=== PATIENT | female | born 1995 | race American Indian/Alaskan Native ===

== ENCOUNTER 2019-10-26 10:44 | Emergency (ER) | payer SELFPAY ==
[2019-10-26 11:02] VITALS: BP 144/86
--- NOTE | 2019-10-26 11:49 | Emergency Department Report ---
ED ENT HPI - General Chief complaint: Dental/Oral Stated complaint: TOOTH PAIN Time Seen by Provider: 10/26/19 11:29 Source: patient Mode of arrival: Ambulatory Limitations: No Limitations - History of Present Illness Initial comments: 24-year-old obese female sent emerge department complaining of atraumatic dental pain to the left side which is worse with chewing and eating and palpation. No fevers chills or sweats no odynophagia or dysphasia no hemoptysis hematemesis no hematochezia. MD complaint: tooth pain Location: tooth # Severity: mild, moderate Quality: dull Consistency: constant Improves with: none Worsens with: eating, movement Associated Symptoms: toothache. denies: sore throat, tinnitus, discharge from ear, rhinorrhea - Related Data Previous Rx's Medication Instructions Recorded Last Taken Type Amoxicillin [Amoxicillin TAB] 875 mg PO BID #20 tablet 10/26/19 Unknown Rx Chlorhexidine Mouthwash [Peridex] 15 ml MM BID #473 bottle 10/26/19 Unknown Rx Lidocaine Viscous 2% 5 ml MM Q3H PRN #120 udc 10/26/19 Unknown Rx Allergies Allergy/AdvReac Type Severity Reaction Status Date / Time shellfish derived Allergy Hives Verified 10/26/19 11:01 ED Dental HPI - General Chief complaint: Dental/Oral Stated complaint: TOOTH PAIN Time Seen by Provider: 10/26/19 11:29 Source: patient Mode of arrival: Ambulatory Limitations: No Limitations - Related Data Previous Rx's Medication Instructions Recorded Last Taken Type Amoxicillin [Amoxicillin TAB] 875 mg PO BID #20 tablet 10/26/19 Unknown Rx Chlorhexidine Mouthwash [Peridex] 15 ml MM BID #473 bottle 10/26/19 Unknown Rx Lidocaine Viscous 2% 5 ml MM Q3H PRN #120 udc 10/26/19 Unknown Rx Allergies Allergy/AdvReac Type Severity Reaction Status Date / Time shellfish derived Allergy Hives Verified 10/26/19 11:01 ED Review of Systems ROS: Stated complaint: TOOTH PAIN Other details as noted in HPI Comment: All other systems reviewed and negative ED Past Medical Hx - Past Medical History Previous Medical History?: No - Surgical History Past Surgical History?: No - Medications Home Medications: Home Medications Medication Instructions Recorded Confirmed Last Taken Type Amoxicillin [Amoxicillin TAB] 875 mg PO BID #20 tablet 10/26/19 Unknown Rx Chlorhexidine Mouthwash [Peridex] 15 ml MM BID #473 bottle 10/26/19 Unknown Rx Lidocaine Viscous 2% 5 ml MM Q3H PRN #120 udc 10/26/19 Unknown Rx ED Physical Exam - General Limitations: No Limitations General appearance: alert, in no apparent distress - Head Head exam: Present: atraumatic, normocephalic - Eye Eye exam: Present: normal appearance, PERRL, EOMI Pupils: Present: normal accommodation - ENT ENT exam: Present: normal exam, normal orophraynx, mucous membranes moist, TM's normal bilaterally, other (There is some tenderness to the left lower molar no adjacent erythema no exudate no fractured dentition) - Neck Neck exam: Present: normal inspection, full ROM - Respiratory Respiratory exam: Present: normal lung sounds bilaterally. Absent: respiratory distress - Cardiovascular Cardiovascular Exam: Present: regular rate, normal rhythm. Absent: systolic murmur, diastolic murmur, rubs, gallop - Extremities Exam Extremities exam: Present: normal inspection - Back Exam Back exam: Present: normal inspection - Neurological Exam Neurological exam: Present: alert, oriented X3 - Psychiatric Psychiatric exam: Present: normal affect, normal mood - Skin Skin exam: Present: warm, dry, intact, normal color. Absent: rash ED Course Vital Signs 10/26/19 11:01 Temperature 99.6 F Pulse Rate 98 H Respiratory 16 Rate Blood Pressure 144/86 [Right] O2 Sat by Pulse 97 Oximetry ED Medical Decision Making - Medical Decision Making 24-year-old female with atraumatic tenderness to the left lower dentition no evidence of any abscesses present at this time. No fracture to the dentition noted although there are caries noted Critical care attestation.: If time is entered above; I have spent that time in minutes in the direct care of this critically ill patient, excluding procedure time. ED Disposition Clinical Impression: Dentalgia Disposition: Z-07 MED SCREENING EXAM-LEFT Is pt being admited?: No Does the pt Need Aspirin: No Condition: Stable Instructions: Toothache (ED), Dental Caries (ED) Prescriptions: Amoxicillin [Amoxicillin TAB] 875 mg PO BID #20 tablet Lidocaine Viscous 2% 5 ml MM Q3H PRN #120 udc PRN Reason: Pain, Moderate (4-6) Chlorhexidine Mouthwash [Peridex] 15 ml MM BID #473 bottle Referrals: [facility] [Outside] - 3-5 Days
== END 2019-10-26 12:01 | disposition left against medical advice (07) ==
LOC: ED 10:44
DX: K08.89 Other specified disorders of teeth and supporting structures (principal); Z79.2 Long term (current) use of antibiotics; Z79.899 Other long term (current) drug therapy; Z91.013 Allergy to seafood
CPT/HCPCS: 99281

== ENCOUNTER 2021-12-26 11:30 | Emergency (ER) | payer SELFPAY ==
[2021-12-26] MEDS ORDERED: MORPHINE 4 MG/1 ML INJ IV ONE (11:41)
[2021-12-26] MEDS ORDERED: ONDANSETRON 4 MG/2 ML INJ IV ONE (11:41)
[2021-12-26] MEDS ORDERED: SODIUM CHLORIDE 0.9% 1000 ML 1,000 ML IV ONE (11:41)
[2021-12-26] MEDS ORDERED: LORazepam 2 MG/ML VIAL IV ONE (11:48)
[2021-12-26] MEDS ORDERED: KETOROLAC 30 MG/1 ML INJ IV ONE (11:49)
[2021-12-26 12:14] VITALS: BP 140/99
--- NOTE | 2021-12-26 12:22 | Emergency Department Report ---
ED Abdominal Pain HPI - General Chief Complaint: Abdominal Pain Stated Complaint: n/v abdominal pain Time Seen by Provider: 12/26/21 11:41 Source: EMS Mode of arrival: Stretcher Limitations: No Limitations - History of Present Illness Initial Comments: Patient 26-year-old female presenting to ED with complaint of nausea and vomiting along with epigastric abdominal pain for the past several days. She denies any fever or chills. Reports associated anxiety. The pain does not migrate. No modifying factors. Severity scale (0 -10): 6 - Related Data Previous Rx's Medication Instructions Recorded Last Taken Type Amoxicillin [Amoxicillin TAB] 875 mg PO BID #20 tablet 10/26/19 Unknown Rx Chlorhexidine Mouthwash [Peridex] 15 ml MM BID #473 bottle 10/26/19 Unknown Rx Lidocaine Viscous 2% 5 ml MM Q3H PRN #120 udc 10/26/19 Unknown Rx Allergies Allergy/AdvReac Type Severity Reaction Status Date / Time Milk Containing Products Allergy Intermediate Unknown Verified 12/26/21 12:04 shellfish derived Allergy Hives Verified 10/26/19 11:01 ED Review of Systems ROS: Stated complaint: n/v abdominal pain Other details as noted in HPI Constitutional: no symptoms reported Respiratory: denies: cough, shortness of breath, wheezing Cardiovascular: denies: chest pain, palpitations Gastrointestinal: abdominal pain, nausea, vomiting. denies: diarrhea Genitourinary: denies: urgency, dysuria, discharge Skin: denies: rash, lesions Neurological: denies: headache, weakness, paresthesias Psychiatric: anxiety. denies: depression ED Past Medical Hx - Medications Home Medications: Home Medications Medication Instructions Recorded Confirmed Last Taken Type Amoxicillin [Amoxicillin TAB] 875 mg PO BID #20 tablet 10/26/19 Unknown Rx Chlorhexidine Mouthwash [Peridex] 15 ml MM BID #473 bottle 10/26/19 Unknown Rx Lidocaine Viscous 2% 5 ml MM Q3H PRN #120 udc 10/26/19 Unknown Rx ED Physical Exam - General Limitations: No Limitations General appearance: alert, in no apparent distress - Head Head exam: Present: atraumatic, normocephalic - Respiratory Respiratory exam: Present: normal lung sounds bilaterally. Absent: respiratory distress - Cardiovascular Cardiovascular Exam: Present: regular rate, normal rhythm, normal heart sounds - GI/Abdominal GI/Abdominal exam: Present: soft, tenderness. Absent: distended, guarding, rebound - Rectal Rectal exam: Present: deferred - Neurological Exam Neurological exam: Present: alert, oriented X3 - Psychiatric Psychiatric exam: Present: normal affect, normal mood - Skin Skin exam: Present: warm, dry, intact, normal color ED Course Vital Signs 12/26/21 12/26/21 12:13 13:33 Temperature 98.3 F Pulse Rate 80 Respiratory 19 Rate Blood Pressure 140/99 [Left] O2 Sat by Pulse 100 99 Oximetry ED Medical Decision Making - Lab Data Result diagrams: 12/26/21 11:53 12/26/21 13:51 - Medical Decision Making Patient given 1 L normal saline bolus along with IV Zofran, morphine, Toradol and Ativan. Labs including CBC, CMP, urinalysis unremarkable. On reassessment patient resting comfortably in bed on her cell phone. I discussed the results with her. She is stable for discharge home with return precautions. Critical care attestation.: If time is entered above; I have spent that time in minutes in the direct care of this critically ill patient, excluding procedure time. ED Disposition Clinical Impression: Epigastric abdominal pain, Anxiety Disposition: HOME / SELF CARE / HOMELESS Is pt being admited?: No Condition: Stable Instructions: Abdominal Pain (ED), Abdominal Pain, Adult, [id number], Managing Anxiety, Adult Referrals: HENNA GUEVARA MD [Primary Care Provider] - 3-5 Days Time of Disposition: 16:13
[2021-12-26 13:16] LABS: Basophils % (Auto) 0.4 % (0.0-1.8); Eosinophils % (Auto) 0.4 % (0.0-4.3); Hematocrit 37.7 % (30.3-42.9); Hemoglobin 12.8 gm/dl (10.1-14.3); Lymphocytes # (Auto) 1.4 K/mm3 (1.2-5.4); Lymphocytes % (Auto) 19.2 % (13.4-35.0); Mean Corpuscular HGB Conc 34 % (30-34); Mean Corpuscular Volume 91 fl (79-97); Monocytes # (Auto) 0.2 K/mm3 (0.0-0.8); Monocytes % (Auto) 2.8 % (0.0-7.3); Red Blood Count 4.12 M/mm3 (3.65-5.03); Red Cell Distribution Width 14.6 % (13.2-15.2)
[2021-12-26 13:22] LABS: Blood Urea Nitrogen TNR mg/dL (7-17)
[2021-12-26 13:23] LABS: Alanine Aminotransferase TNR units/L (7-56); Albumin TNR g/dL (3.9-5); BUN/Creatinine Ratio TNR; Bilirubin,Direct TNR mg/dL (0-0.2); Calcium TNR mg/dL (8.4-10.2); Hemolysis Index TNR
[2021-12-26 13:37] LABS: Platelet Count 357 K/mm3 (140-440)
[2021-12-26 14:32] LABS: Alanine Aminotransferase 11 units/L (7-56); Albumin 4.5 g/dL (3.9-5); Blood Urea Nitrogen 8 mg/dL (7-17); Calcium 9.3 mg/dL (8.4-10.2); Hemolysis Index 2
[2021-12-26 14:35] LABS: BUN/Creatinine Ratio 13; Bilirubin,Direct < 0.2 mg/dL (0-0.2)
[2021-12-26 15:57] LABS: Bilirubin,Urine NEG (Negative); Blood,Urine NEG (Negative); Color,Urine Yellow (Yellow); Mucus,Urine 1+ /HPF; Protein,Urine <15 mg/dL mg/dL (Negative); Urobilinogen,Urine < 2.0 mg/dL (<2.0)
== END 2021-12-26 16:34 | disposition home or self-care (01) ==
LOC: EDBD → ED 11:30
DX: R10.13 Epigastric pain (principal); F41.9 Anxiety disorder, unspecified
CPT/HCPCS: 36415; 80048; 80076; 81001; 83690; 84703; 85025; 96361; 96374; 96375; 99284; J1885; J2060; J2270; J2405; J7030